=== PATIENT | female | born 1945 | race Caucasian/White ===

== ENCOUNTER 2016-10-23 15:39 | Emergency (ER) | payer MEDICARE ==
[2016-10-23] MEDS ORDERED: Diazepam 5 MG TAB ONE (16:12)
[2016-10-23] MEDS ORDERED: Naproxen 500 MG TAB ONE (16:12)
[2016-10-23] MEDS ORDERED: HYDROcodone/Acetaminophen 10/325 mg Tablet ONE (16:12)
[2016-10-23 16:17] LABS: Blood, Urine Trace (Negative); Clarity Slightly Cloudy (Clear); Glucose, Urine (Dipstick) Negative (Negative); Leukocyte Negative (Negative); Nitrite Negative (Negative); Protein, Urine (Dipstick) Negative (Neg-Trace); Urobilinogen 0.2 mg/dL (0.2-1.0); pH, Urine 5.5 (5.0-9.0)
[2016-10-23 16:20] LABS: Bilirubin Small (Negative); Icto Negative (Negative); Specific Gravity, Urine 1.031 (1.002-1.036)
[2016-10-23 16:21] LABS: Bacteria/HPF Rare-Few HPF (None Seen); Renal Epithelial 0-3 HPF (0-3); Transitional Epithelial 0-3 HPF (0-3)
[2016-10-23 16:22] LABS: Crystals/HPF RARE AMORPH URATES HPF (Negative)
[2016-10-23] MEDS ORDERED: Ciprofloxacin 500 MG TAB ONE (16:47)
== END 2016-10-23 16:52 | disposition home or self-care (01) ==
LOC: MADERS 15:39
DX: M62.830 Muscle spasm of back (principal); M54.6 Pain in thoracic spine; N39.0 Urinary tract infection, site not specified; I10 Essential (primary) hypertension; Z90.710 Acquired absence of both cervix and uterus; Z79.899 Other long term (current) drug therapy
CPT/HCPCS: 81003; 81015; 87077; 87086; 87186; 99283

== ENCOUNTER 2017-07-12 11:57 | Emergency (ER) | payer MEDICARE ==
[2017-07-12] MEDS ORDERED: Nitroglycerin 0.4 MG TAB 1 EACH ONE (12:37)
[2017-07-12] MEDS ORDERED: Nitroglycerin 2% Ointment 1 INCH/1 GM Packet ONE (12:40)
[2017-07-12 12:48] LABS: #Eosinphils 0.1 thou/uL (0.0-0.7); #Lymphocytes 1.3 thou/uL (1.20-3.40); #Monocytes 0.6 thou/uL (0.11-0.59); %Basophils 0.6 % (0.0-1.0); %Eosinophils 1.5 % (0.0-10.0); %Lymphocytes 15.7 % (21.0-51.0); %Monocytes 7.8 % (0.0-10.0); %Neutrophils 74.5 % (42.0-75.0); Hemoglobin 12.9 g/dL (12.0-16.0); Mean Corpuscular HGB CONC 32.2 g/dL (32.0-36.0); Mean Corpuscular Hemoglobin 30.5 pg (27.0-31.0); Mean Corpuscular Volume 94.7 fl (81.0-99.0); Mean Platelet Volume 11.3 fL (7.4-10.4); Platelet Count 157 thou/uL (130-400); RBC Distribution Width 12.4 % (11.5-14.5); Red Blood Cell (RBC) Count 4.23 mill/uL (4.20-5.40)
[2017-07-12 13:03] LABS: Prothrombin Time 13.5 SEC (12.0-14.7)
[2017-07-12 13:04] LABS: PTT 29.2 SEC (22.9-36.1)
--- NOTE | 2017-07-12 13:08 | RAD ---
CHEST ONE VIEW: Comparison: 01-01-16 History: Chest pain. FINDINGS: Elongation of the aorta. Enlarged cardiac silhouette. The pulmonary vessels and hilum are normal. Cos tophrenic angles are clear. No mass. No consolidation. No osseous abnormality or pneumothorax. IMPRESSION: No acute cardiopulmonary process. POS: [facility]
[2017-07-12] MEDS ORDERED: Morphine 4 MG/ML VIAL ONE (13:12)
[2017-07-12 13:15] LABS: ALT (SGPT) 20 U/L (8-55); AST (SGOT) 17 U/L (5-34); Albumin 3.9 g/dL (3.4-4.8); Alkaline Phosphatase 82 U/L (40-150); Anion Gap 14 mmol/L (10-20); BUN (Urea Nitrogen) 12 mg/dL (9.8-20.1); Bilirubin, Total 0.6 mg/dL (0.2-1.2); Calc. Creatinine Clearance 0 mL/min (70-130); Calcium 8.7 mg/dL (7.8-10.44); Carbon Dioxide 26 mmol/L (23-31); Chloride 106 mmol/L (98-107); Estimated GFR-MDRD 78; Globulin 2.4 g/dL (2.4-3.5); Glucose 130 mg/dL (80-115); Magnesium 1.6 mg/dL (1.6-2.6); Protein, Total 6.3 g/dL (6.0-8.3); Sodium 142 mmol/L (136-145)
[2017-07-12 13:17] LABS: CKMB 1.7 ng/mL (0-6.6); Troponin I Less than 0.010 ng/mL (< 0.028)
--- NOTE | 2017-07-12 13:51 | RAD ---
TWO VIEW CHEST: History: Chest pain. FINDINGS: Lung laguerre are clear. No infiltrate is seen. Heart and mediastinum unremarkable. Vascular markings n ormal. IMPRESSION: No acute process. POS: [facility]
[2017-07-12] MEDS ORDERED: Ondansetron ODT 4 MG TAB ONE (14:41)
== END 2017-07-12 15:14 | disposition short-term general hospital (02) ==
LOC: MADERS 11:57
DX: R07.89 Other chest pain (principal); E87.70 Fluid overload, unspecified; E78.5 Hyperlipidemia, unspecified; I10 Essential (primary) hypertension; M10.9 Gout, unspecified; Z79.899 Other long term (current) drug therapy
CPT/HCPCS: 71010; 71020; 80053; 82553; 83735; 83880; 84484; 85025; 85610; 85730; 93005; 94760; 96374; J2270; Q0162